=== PATIENT | male | born 1995 | race Two or more races ===

== ENCOUNTER 2018-09-05 08:49 | Emergency (ER) | payer OTHER ==
[~2018-09-05] VITALS: Ht 177.8 cm; Wt 59.0 kg
[2018-09-05 08:56] VITALS: BP 128/81
== END 2018-09-05 09:04 ==
LOC: ER 08:53
DX: A49.02 Methicillin resistant Staphylococcus aureus infection, unspecified site (principal); Z60.2 Problems related to living alone